=== PATIENT | female | born 1965 | race Two or more races ===

== ENCOUNTER 2019-01-29 19:30 | Emergency (ER) | payer BC ==
[~2019-01-29] VITALS: Ht 154.9 cm; Wt 52.2 kg
[2019-01-29] MEDS ORDERED: ALBU8.5H8 INH (19:38)
--- NOTE | 2019-01-29 19:39 | NUR ---
Patient ambulated with stable gait. AAOX4. Speech is clear, speaks in complete sentences. No neuro deficits. Patient came in with c/o SOB since monday/monday. Respiratory even and unlabored, lung sounds clear, but episodes of intermittent coughing. No cardiovascular distress, all pulses palpable. No GI/ distress noted. Patient in bed at lowest position, side rails upx2, call light within reach, relative/friend at bedside. Fall precuations implemented per protocol.
--- NOTE | 2019-01-29 19:50 | NUR ---
ERMD at bedside for MSE.
--- NOTE | 2019-01-29 19:58 | NUR ---
Phone call placed to RT for breathing tx
[2019-01-29] MEDS ORDERED: ALBUTEROL SULFATE 2.5 MG/3 ML NEBU NEB ONE (20:00)
[2019-01-29] MEDS ORDERED: IPRATROPIUM BROMIDE 0.5 MG/2.5 ML NEBU NEB ONE (20:00)
[2019-01-29] MEDS ORDERED: ALBUTEROL SULFATE 2.5 MG/3 ML NEBU ONE (20:01)
[2019-01-29] MEDS ORDERED: IPRATROPIUM BROMIDE 0.5 MG/2.5 ML NEBU ONE (20:01)
--- NOTE | 2019-01-29 20:23 | NUR ---
Patient discharged to home in stable conditon. Written and verbal after care instructions given. Patient verbalizes understanding of instructions. Patient ambulated with stable gait.
--- NOTE | 2019-01-29 20:46 | NUR ---
Patient in bed, NAD, VSS. Patient reported that she feels better, and work of breathing is easier than it was prior.
[2019-01-29 21:07] VITALS: BP 120/65
== END 2019-01-29 20:46 | disposition home or self-care (01) ==
LOC: ER 19:30
DX: J45.909 Unspecified asthma, uncomplicated (principal); Z79.899 Other long term (current) drug therapy
CPT/HCPCS: A4663; J3590

== ENCOUNTER 2019-02-05 22:27 | Emergency (ER) | payer BC, OTHER ==
[~2019-02-05] VITALS: Ht 154.9 cm; Wt 52.6 kg
[~2019-02-05 22:27] MED LIST: ALBU8.5H8 INH
--- NOTE | 2019-02-05 22:40 | NUR ---
DR. KAMARA AT BEDSIDE FOR MSE.
[2019-02-05] MEDS ORDERED: ACETAMINOPHEN ES 500 MG TABLET ONE (22:53)
[2019-02-05] MEDS: ACETAMINOPHEN ES 500 MG TABLET PO ONE (22:55)
--- NOTE | 2019-02-06 00:26 | NUR ---
Patient discharged to home in stable conditon. Written and verbal after care instructions given. Patient verbalizes understanding of instructions. PATIENT LEFT WITH STABLE GAIT.
[2019-02-06 00:27] VITALS: BP 113/86
== END 2019-02-06 00:28 | disposition home or self-care (01) ==
LOC: ER 22:27
DX: S69.92XA Unspecified injury of left wrist, hand and finger(s), initial encounter (principal); M54.2 Cervicalgia; J45.909 Unspecified asthma, uncomplicated; Z79.899 Other long term (current) drug therapy; W18.39XA Other fall on same level, initial encounter; Y93.89 Activity, other specified; Y92.89 Other specified places as the place of occurrence of the external cause; Y99.8 Other external cause status
CPT/HCPCS: 73110; A4663; A9150

== ENCOUNTER 2019-05-23 15:52 | Emergency (ER) | payer MEDICAID ==
[~2019-05-23] VITALS: Ht 154.9 cm; Wt 54.4 kg
[2019-05-23 16:43] VITALS: BP 115/57
== END 2019-05-23 16:44 | disposition home or self-care (01) ==
LOC: ER 15:54
DX: J45.909 Unspecified asthma, uncomplicated (principal); Z79.899 Other long term (current) drug therapy
CPT/HCPCS: 71045; A4663

== ENCOUNTER 2019-06-06 15:24 | Emergency (ER) | payer MEDICAID ==
[~2019-06-06] VITALS: Ht 157.5 cm; Wt 54.4 kg
[2019-06-06 16:07] LABS: *BILIRUBIN,URIN NEGATIVE (NEGATIVE); *BLOOD, URINE 3+ (NEGATIVE); *COLOR,URINE YELLOW (YELLOW); *KETONES,URINE NEGATIVE (NEGATIVE); *UROBILINOGEN,URINE 0.2 E.U./dl (NORMAL); LEUKOCYTE ESTERASE ,URINE 2+ (NEGATIVE); NITRITE, URINE NEGATIVE (NEGATIVE); UGLUCOSE NEGATIVE (NEGATIVE)
[2019-06-06 16:16] LABS: *CLARITY,URINE HAZY (CLEAR)
[2019-06-06 16:19] LABS: RBC,URINE 20-50 /HPF (0-3); SQUAMOUS EPITHELIAL CELL,UR FEW /HPF (NONE SEEN); WBC,URINE 20-50 /HPF (0-3)
[2019-06-06] MEDS ORDERED: IPRATROPIUM BROMIDE 0.5 MG/2.5 ML NEBU NEB ONE (17:30)
[2019-06-06] MEDS ORDERED: ALBUTEROL SULFATE 2.5 MG/3 ML NEBU NEB ONE (17:30)
[2019-06-06] MEDS ORDERED: ALBUTEROL SULFATE 2.5 MG/3 ML NEBU ONE (17:32)
[2019-06-06] MEDS ORDERED: IPRATROPIUM BROMIDE 0.5 MG/2.5 ML NEBU ONE (17:32)
--- NOTE | 2019-06-06 18:44 | NUR ---
Patient discharged to home in stable conditon. Written and verbal after care instructions given. Patient verbalizes understanding of instructions.
[2019-06-06 18:46] VITALS: BP 100/76
== END 2019-06-06 18:47 | disposition home or self-care (01) ==
LOC: ER 15:26
DX: N39.0 Urinary tract infection, site not specified (principal); J45.901 Unspecified asthma with (acute) exacerbation; Z79.899 Other long term (current) drug therapy
CPT/HCPCS: 71046; 87077; 87086; 93005; A4663; J3590

== ENCOUNTER 2019-10-22 16:32 | Emergency (ER) | payer MEDICAID ==
[~2019-10-22] VITALS: Ht 154.9 cm; Wt 54.4 kg
--- NOTE | 2019-10-22 17:11 | NUR ---
PT WAS EVALUATED BY DR KAMARA. PT WAS D/C TO HOME. D/C INSTRUCTIONS GIVEN TO THE PT BY DR KAMARA. CRUTCHES TRAINING IS DONE. GAIT IS STABLE. PT LEFT HOSPITAL WITH HER SISTER BY CAR.
[2019-10-22 17:16] VITALS: BP 132/69
== END 2019-10-22 17:17 | disposition home or self-care (01) ==
LOC: ER 16:33
DX: S89.92XA Unspecified injury of left lower leg, initial encounter (principal); J45.909 Unspecified asthma, uncomplicated; Z79.899 Other long term (current) drug therapy; X58.XXXA Exposure to other specified factors, initial encounter; Y93.41 Activity, dancing; Y92.89 Other specified places as the place of occurrence of the external cause; Y99.8 Other external cause status
CPT/HCPCS: A4663